=== PATIENT | female | born 2000 | race Caucasian/White ===

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

== ENCOUNTER 2021-04-21 23:02 | Emergency (ER) | payer MEDICAID ==
[~2021-04-21] VITALS: Ht 165.1 cm; Wt 50.0 kg
[2021-04-22 03:18] VITALS: BP 147/71
[2021-04-22] MEDS ORDERED: famotidine 20mg tablet PO ONE (03:50)
[2021-04-22] MEDS ORDERED: diphenhydrAMINE 25mg capsule PO ONE (03:50)
[2021-04-22] MEDS ORDERED: dexamethasone 4mg tablet PO ONE (03:50)
[2021-04-22] MEDS ORDERED: FAMO40TA58 PO (04:50)
[2021-04-22] MEDS ORDERED: DIPH25CA83 PO (04:50)
== END 2021-04-22 05:32 | disposition home or self-care (01) ==
LOC: ER 23:03
DX: R21 Rash and other nonspecific skin eruption (principal); T42.1X5A Adverse effect of iminostilbenes, initial encounter; Z88.8 Allergy status to other drugs, medicaments and biological substances; Z79.899 Other long term (current) drug therapy; Y92.89 Other specified places as the place of occurrence of the external cause
CPT/HCPCS: 99284; Q0163

== ENCOUNTER 2024-08-11 13:07 | Outpatient (CLI) | payer MEDICAID ==
[~2024-08-11 13:07] MED LIST: DIPH25CA83 PO; FAMO40TA58 PO
--- NOTE | 2024-08-11 18:15 | RADIOLOGY REPORT ---
PROCEDURE: MR MRI C SPINE INDICATION: CERVICALGIA//PAIN IN THORACIC SPINE EXAM DATE: 08/11/2024 01:27 PM COMPARISON: None TECHNIQUE: MRI cervical spine without intravenous contrast. FINDINGS: Limited by motion. The cervical alignment is intact. The vertebral body heights and marrow signal are within normal diop its. The visualized posterior fossa and craniocervical junction are intact. The intrinsic cervical cord signal appears intact. There is no prevertebral soft tissue swelling. The visualized paraspina l soft tissues are otherwise unremarkable. The following axial levels are detailed below: C2-C3: Uncovertebral hypertrophy contributes to mild left neural foraminal stenosis. No significant central canal stenosis. C3-C4: Uncovertebral hypertrophy contributes to mild right neural foraminal stenosis. No significan t central canal stenosis. C4-C5: Mild posterior disc osteophyte complex complicated by facet arthropathy associated with mild bilateral neural foraminal stenosis. No significant central canal stenosis. C5-C6: Mild posterior disc osteophyte complex complicated by facet arthropathy associated with mild bilateral neural foraminal stenosis. No significant central canal stenosis. C6-C7: Mild posterior disc osteophyte complex complicated by facet arthropathy associated with mild bilateral neural foraminal stenosis. No significant central canal stenosis. C7-T1: Unremarkable. IMPRESSION: 1. Mild degenerative disease. No significant central canal stenosis. Neural foraminal stenosis as a janice. 2. Intact cervical cord signal. No evidence of cord compression. HS:Y
--- NOTE | 2024-08-11 18:17 | RADIOLOGY REPORT ---
PROCEDURE: MR MRI THORACIC SPINE INDICATION: CERVICALGIA//PAIN IN THORACIC SPINE Exam Date: 08/11/2024 01:57 PM COMPARISON: None TECHNIQUE: MRI thoracic spine without intravenous contrast. FINDINGS: Mild levoscoliosis upper lumbar spine. The vertebral body heights are intact. The marrow signal is within normal limits. The thoracic cord signal and contour appear intact. There is no significant p osterior disc disease, central canal or neural foraminal narrowing. The visualized paraspinal soft t issues are otherwise unremarkable. IMPRESSION: 1. No significant posterior disc disease, central canal or neural foraminal narrowing. 2. Intact thoracic cord signal. No evidence of cord compression. HS:Y
== END 2024-08-11 23:59 | disposition home or self-care (01) ==
LOC: MRI02 13:07
PROVIDERS: ATTEND Physician Assistant Surgical
DX: M47.812 Spondylosis without myelopathy or radiculopathy, cervical region (principal); M41.20 Other idiopathic scoliosis, site unspecified; M54.2 Cervicalgia; M54.6 Pain in thoracic spine; G89.29 Other chronic pain; M48.02 Spinal stenosis, cervical region
CPT/HCPCS: 72141; 72146